=== PATIENT | female | born 1990 | race American Indian/Alaskan Native ===

== ENCOUNTER 2018-07-01 21:34 | Emergency (ER) | payer MEDICAID, OTHER ==
[2018-07-01 21:55] VITALS: RESP 16; O2SAT 100
--- NOTE | 2018-07-01 22:34 | ED PDOC ---
Upper Extremity Pain/Injury Time Seen by Provider: 07/01/18 22:16 Chief Complaint (Nursing): Finger,Hand,&Wrist Chief Complaint (Provider): Left wrist swelling History Per: Patient Additional Complaint(s): 28 y/o F with hx of HIV who presents with sudden onset Left wrist swelling that occurred this evening. Pt states that she was performing her usual daily activities this evening and had just finished cooking when she developed swelling over her Left wrist in 2 areas. She states that she is having some numbness on her palm but denies numbness/tingling in fingers. Denies pain at the site or trauma to the area. No fevers, chills, night sweats. Past Medical History Reviewed: Historical Data, Nursing Documentation, Vital Signs Vital Signs: Last Vital Signs Temp 98.0 F 07/01/18 21:54 Pulse 82 07/01/18 21:54 Resp 16 07/01/18 21:54 BP 108/60 07/01/18 21:54 Pulse Ox 100 07/01/18 21:54 - Medical History PMH: HIV - Family History Family History: States: Unknown Family Hx - Allergies Allergies/Adverse Reactions: Allergies Allergy/AdvReac Type Severity Reaction Status Date / Time No Known Allergies Allergy Verified 07/01/18 21:51 Review of Systems Constitutional: Negative for: Fever, Chills Physical Exam - Reviewed Nursing Documentation Reviewed: Yes Vital Signs Reviewed: Yes - Physical Exam Appears: Positive for: Well Head Exam: Positive for: ATRAUMATIC Skin: Positive for: Normal Color Pulses-Radial (L): 2+ Extremity: Positive for: Normal ROM (with flexion and extension at wrist and fingers. ), Capillary Refill (< 2sec), Other (anterolateral aspect of Left wrist with swelling/nodule noted over radial pulse with a second area of soft tissue swelling on the lateral wrist. No erythema or drainage. No mass or deformity.). Negative for: Tenderness Neurologic/Psych: Positive for: Alert, Oriented - ECG O2 Sat by Pulse Oximetry: 100 Medical Decision Making Medical Decision Making: Arterial U/S of LUE limited to radial artery to evaluate for cyst vs aneurysm. Pt endorsed to [facility]ive[facility] pending ultrasound results Disposition - Clinical Impression Clinical Impression: Wrist swelling - Patient ED Disposition Is Patient to be Admitted: Transfer of Care - Disposition Disposition: Transfer of Care Disposition Time: 23:20 Condition: STABLE Forms: [employer] ([place])
--- NOTE | 2018-07-02 00:41 | ED PDOC ---
- ECG O2 Sat by Pulse Oximetry: 100 - Progress ED Course And Treament: Case endorsed to residential mortgage underwriter from [employer] pending u/s EXAM: US left Upper Extremity Nonvascular Soft Tissue Ultrasound CLINICAL HISTORY: LT WRIST LUMP. R/O CYST VS ANEURYSM. TECH REPORT ON SAME PAGE. NO EXTRA PAPER WORK. TECHNIQUE: Real-time ultrasound scan of the left upper extremity with image documentation. COMPARISON: None provided. FINDINGS: SOFT TISSUES: 2.8 x 0.9 cm fluid collection in the region of clinical concern most compatible with an abscess. Consider aspiration. Otherwise negative study. IMPRESSION: 2.8 x 0.9 cm fluid collection in the region of clinical concern most compatible with an abscess. Consider aspiration. Patient resting comfortably on re-eval; denies pain to wrist. Has FROM. No warmth, tenderness. Afebrile. No clinical concerns for infectious process at t his time. Patient evaluated by ED attending Dr. Robertson, who agrees with plan TAMMY wrap applied Advised ice. Follow up PMD within 2-3 days Patient given strict return instructions, including fever, redness, pain to area, pain with movement of wrist, or other concerning symptoms Patient demonstrates full understanding Disposition - Clinical Impression Clinical Impression: Ganglion cyst of volar aspect of left wrist - POA Present On Arrival: None - Disposition Referrals: [facility] [place] [Outside] Disposition: Routine/Home Disposition Time: 00:54 Condition: STABLE Instructions: Ganglion Cyst Forms: [employer] ([place])
[2018-07-02 01:40] VITALS: BP 112/57; PULSE 68; TEMP 97.7
--- NOTE | 2018-07-02 14:44 | US ---
Date of service: 07/01/2018 PROCEDURE: Arterial duplex left upper extremity HISTORY: R/O cyst vs aneurysm COMPARISON: None TECHNIQUE: FINDINGS: Arterial duplex of the left upper extremity is performed. Images of the radial artery are provided for interpretation. The radial artery are patent without stenosis Two palpable masses in the wrist are also imaged. The masses are hypoechoic with no internal color flow. The palpable areas are separate from radial artery. Largest collection measures 2.8 x 0.9 centimeter. IMPRESSION: Palpable areas of concern left likely represent cysts. The lumps are separate from the radial artery and do not represent anuerysms or pseudoaneurysms.
== END 2018-07-02 02:00 | disposition home or self-care (01) ==
LOC: H.ER 21:34
DX: M67.432 Ganglion, left wrist (principal)